=== PATIENT | female | born 1975 | race African-American/Black ===

== ENCOUNTER 2020-12-13 13:38 | Emergency (ER) | payer OTHER ==
[~2020-12-13] VITALS: Ht 170.2 cm; Wt 75.0 kg
[2020-12-13] MEDS ORDERED: BO1 TP (14:30)
[2020-12-13] MEDS ORDERED: TETANUS, DIPHTHERIA, PERTUSSIS VAC/PF 0.5ML (>7YR OLD) IM ONE (14:30)
[2020-12-13] MEDS ORDERED: BACITRACIN ZINC OINT UDPKT TOP ONE (14:30)
[2020-12-13 15:11] VITALS: BP 142/100
[2020-12-13] MEDS ORDERED: IBUPROFEN 600MG TABLET PO ONE (15:15)
== END 2020-12-13 15:14 | disposition home or self-care (01) ==
LOC: ER 13:52
DX: T24.201A Burn of second degree of unspecified site of right lower limb, except ankle and foot, initial encounter (principal); T24.121A Burn of first degree of right knee, initial encounter; T31.0 Burns involving less than 10% of body surface; E11.9 Type 2 diabetes mellitus without complications; X12.XXXA Contact with other hot fluids, initial encounter; Y93.89 Activity, other specified; Y92.010 Kitchen of single-family (private) house as the place of occurrence of the external cause
CPT/HCPCS: 16020; 90471; 90715; 99283; Z7610